=== PATIENT | male | born 1995 | race Caucasian/White ===

== ENCOUNTER 2019-12-12 16:50 | Emergency (ER) | payer OTHER ==
[~2019-12-12] VITALS: Ht 182.9 cm; Wt 78.5 kg
== END 2019-12-12 19:21 | disposition home or self-care (01) ==
LOC: ER 16:50
DX: I49.8 Other specified cardiac arrhythmias (principal)

== ENCOUNTER 2021-03-05 21:30 | Emergency (ER) | payer OTHER ==
[~2021-03-05] VITALS: Ht 182.9 cm; Wt 78.0 kg
== END 2021-03-06 | disposition home or self-care (01) ==
LOC: ER 21:30
DX: S61.452A Open bite of left hand, initial encounter (principal); W55.01XA Bitten by cat, initial encounter; Y92.89 Other specified places as the place of occurrence of the external cause

== ENCOUNTER 2021-06-16 14:16 | Emergency (ER) | payer OTHER ==
[~2021-06-16] VITALS: Ht 182.9 cm; Wt 78.0 kg
[2021-06-16] MEDS ORDERED: AMOX-CLAV 875-1 EACH PO (17:44)
== END 2021-06-16 18:01 | disposition home or self-care (01) ==
LOC: ER 14:16
DX: S61.411A Laceration without foreign body of right hand, initial encounter (principal); W55.01XA Bitten by cat, initial encounter; Y93.9 Activity, unspecified; Y92.9 Unspecified place or not applicable; Y99.9 Unspecified external cause status